=== PATIENT | female | born 1990 | race Caucasian/White ===

== ENCOUNTER 2022-08-25 00:26 | Emergency (ER) | payer BC, MEDICAID ==
[~2022-08-25] VITALS: Ht 170.2 cm; Wt 118.0 kg
[~2022-08-25 00:26] MED LIST: HYDR-4353 PO; NITR100C6 PO; OMEP40CA21 PO; ONDA4TAB6 PO; PHEN-786 PO; SUCR1ORA2 PO
[2022-08-25] MEDS ORDERED: normal saline 1000ML IV soln IVB ONE (03:05)
[2022-08-25 03:21] VITALS: BP 146/85
[2022-08-25 04:17] LABS: BASOPHILS % (AUTO) 0.5 % (0-1); EOSINOPHILS % (AUTO) 0.1 % (0-6); HEMATOCRIT 40.9 % (35.0-45.0); HEMOGLOBIN 13.9 g/dl (12.0-16.0); LYMPHOCYTES # (AUTO) 1.1 X10'3 (1.1-4.8); MEAN CORPUSCULAR HEMOGLOBIN 30.3 PG (27.0-31.0); MEAN PLATELET VOLUME 8.9 FL (7.4-10.4); MONOCYTES # (AUTO) 1.1 X10'3 (0-0.9); MONOCYTES % (AUTO) 11.7 % (2-12); NEUTROPHILS # (AUTO) 6.8 X10'3 (1.8-7.7); NEUTROPHILS % (AUTO) 75.7 % (42-75); PLATELET COUNT 256 X10'3 (140-440); RED CELL DISTRIBUTION WIDTH 13.5 % (11.5-14.5)
[2022-08-25 04:18] LABS: ALBUMIN 4.1 G/DL (3.4-5.0); ANION GAP 11 (8-16); BLOOD UREA NITROGEN 8 MG/DL (7-18); BUN/CREATININE RATIO 10.7 (10.0-20.0); CALCIUM 8.8 MG/DL (8.5-10.1); CHLORIDE 101 MMOL/L (99-107); CREATININE 0.75 MG/DL (0.40-0.90); GLUCOSE 120 MG/DL (70-104); SODIUM 137 MMOL/L (135-145); TOTAL CARBON DIOXIDE 24.9 MMOL/L (24-32); eGFR > 90 ML/MIN
[2022-08-25] MEDS ORDERED: potassium Cl 20 mEq SR tablet PO ONE (04:30)
[2022-08-25] MEDS: clindamycin 600mg/D5W 50ml 50 ML IV ONE ×2 (04:51→05:06)
[2022-08-25] MEDS ORDERED: CLIN-97 PO (05:03)
[2022-08-25] MEDS ORDERED: dexamethasone inj 6 MG in normal saline 50ml IV soln 50 ML IV SCH (05:05)
--- NOTE | 2022-08-25 05:39 | NUR ---
IV DC'D PT BEING DISCHARGED DRESSING APPLIED
== END 2022-08-25 05:41 | disposition home or self-care (01) ==
LOC: ER 00:26
DX: J02.9 Acute pharyngitis, unspecified (principal); F17.200 Nicotine dependence, unspecified, uncomplicated; F12.90 Cannabis use, unspecified, uncomplicated; Z79.899 Other long term (current) drug therapy
CPT/HCPCS: 36415; 70360; 80048; 83605; 85025; 87040; 87077; 87081; 87880; 96361; 96365; 96368; 99284; J1100; J3490; J7030; 96366

== ENCOUNTER 2024-01-14 19:53 | Emergency (ER) | payer BC, MEDICAID ==
[~2024-01-14] VITALS: Ht 170.2 cm; Wt 131.2 kg
[~2024-01-14 19:53] MED LIST changes: +CLIN-97 PO
[2024-01-15 02:33] VITALS: BP 138/79; PULSE 69; RESP 16; TEMP 97.7; O2SAT 99
== END 2024-01-15 02:00 | disposition home or self-care (01) ==
LOC: ER 19:54
DX: R60.0 Localized edema (principal); F12.90 Cannabis use, unspecified, uncomplicated; Z88.1 Allergy status to other antibiotic agents; Z88.5 Allergy status to narcotic agent; Z88.8 Allergy status to other drugs, medicaments and biological substances; Z87.440 Personal history of urinary (tract) infections
CPT/HCPCS: 93971; 99284